=== PATIENT | male | born 1950 | race Caucasian/White ===

== ENCOUNTER 2016-11-29 08:24 | Day surgery (SDC) | payer OTHER, MEDICAID ==
[~2016-11-29 08:24] MED LIST: PROPOFOL 500 MG/50 ML EMU IV ONE
[2016-11-29 10:24] VITALS: BP 142/81; PULSE 78; RESP 20; TEMP 97.4; O2SAT 97
== END 2016-11-29 10:37 | disposition home or self-care (01) | DRG 951 ==
LOC: SURG 08:24
PROVIDERS: ATTEND Surgery
DX: Z12.11 Encounter for screening for malignant neoplasm of colon (principal); K57.30 Diverticulosis of large intestine without perforation or abscess without bleeding; Z86.010 Personal history of colon polyps
CPT/HCPCS: G0105; J2001; J2704

== ENCOUNTER 2018-05-24 17:11 | Emergency (ER) | payer MEDICAID, MEDICARE, OTHER ==
[2018-05-24 17:38] VITALS: BP 132/82; PULSE 98; RESP 20; TEMP 97; O2SAT 96
[2018-05-24 18:02] LABS: APPEARANCE,URINE Clear; BILIRUBIN,URINE NEGATIVE (NEGATIVE); COLOR,URINE Yellow; GLUCOSE, URINE (UA) NEGATIVE (NEGATIVE); KETONES,URINE NEGATIVE (NEGATIVE); LEUKOCYTE ESTERASE ,URINE NEGATIVE (NEGATIVE); NITRATE,URINE NEGATIVE (NEGATIVE); OCCULT BLOOD,URINE TRACE LYSED (NEG-TRACE); PH,URINE 5.5; UROBILINOGEN,URINE 0.2 (0.2-1.0 EU)
[2018-05-24 18:19] LABS: BACTERIA NEGATIVE (< 1+); CRYSTALS NEGATIVE (0-3 AVE/HPF); EPITHELIAL CELLS NEGATIVE (SQUAMOUS); RBC,URINE NEG (0-3AV/HPF); WBC,URINE NEG (0-5AV/HPF)
== END 2018-05-24 19:25 | disposition home or self-care (01) | DRG 696 ==
LOC: ED 17:11
DX: R31.9 Hematuria, unspecified (principal); I10 Essential (primary) hypertension
CPT/HCPCS: 81001; 99282